=== PATIENT | male | born 2000 | race Caucasian/White ===

== ENCOUNTER 2024-06-15 19:26 | Emergency (ER) | payer OTHER ==
[2024-06-15 19:47] VITALS: BP 135/96; PULSE 86; RESP 20; TEMP 98.4; BMI 36.8
[2024-06-15] MEDS ORDERED: METHOCARBAMOL 500 MG TABLET ONE (20:30)
[2024-06-15] MEDS ORDERED: IBUPROFEN 400 MG TABLET (FP) PO ONE (20:30)
[2024-06-15] MEDS: IBUPROFEN 400 MG TABLET (FP) PO ONE (20:31)
[2024-06-15] MEDS: METHOCARBAMOL 500 MG TABLET PO ONE (20:32)
== END 2024-06-15 22:54 | disposition home or self-care (01) ==
LOC: JERFT 19:26
DX: M25.512 Pain in left shoulder (principal); M54.50 Low back pain, unspecified; M25.561 Pain in right knee; M25.562 Pain in left knee; V49.40XA Driver injured in collision with unspecified motor vehicles in traffic accident, initial encounter; Y99.0 Civilian activity done for income or pay
CPT/HCPCS: 72100-TC-FY; 73030-TC-LT-FY; 73562-TC-LT-FY; 73562-TC-RT-FY; 99284-25